=== PATIENT | female | born 1955 | race African-American/Black ===

== ENCOUNTER 2019-02-17 17:38 | Inpatient (IN) ==
[2019-02-17] MEDS ORDERED: ASPIRIN PO ONE (17:59)
[2019-02-17] MEDS ORDERED: ASPIRIN PR ONE (17:59)
[2019-02-17] MEDS ORDERED: LASIX IV ONE (18:03)
[2019-02-17 18:28] LABS: BASO# 0.05 X1000 (0.0-0.2); BASO% 0.5 % (0.0-0.8); EOS# 0.26 X1000 (0.0-0.7); EOS% 2.5 % (0.0-10.0); HEMATOCRIT 38.7 % (37.0-47.0); HEMOGLOBIN 12.9 g/dL (12.0-16.0); IMM GRAN# 0.02 X1000 (0.0-0.04); IMM GRAN% 0.2 % (0.0-0.5); LYMPH# 2.54 X1000 (1.2-3.4); LYMPH% 24.8 % (20.5-51.1); MCH 27.9 PG (27-31); MCHC 33.3 g/dL (33-37); MCV 83.8 FL (81-99); MONO# 0.75 X1000 (0.11-0.59); MONO% 7.3 % (1.7-9.3); MPV 8.6 FL (7.4-10.4); NEUT# 6.64 X1000 (1.4-6.5); NEUT% 64.7 % (42.2-75.2); PLT 356 X1000 (130-400); RBC 4.62 XMIL (4.2-5.4); RDW 14.6 % (11.5-14.5); WBC 10.26 X1000 (4.8-10.8)
[2019-02-17 18:34] LABS: INR 0.99; PROTIME 13.9 Seconds (11.0-16.0); PTT 26.4 Seconds (22.3-41.8)
[2019-02-17 18:44] LABS: AGAP 11; ALB/GLOB RATIO 1.3; ALBUMIN 3.8 g/dL (3.5-5.0); ALKALINE PHOSPHATASE 125 U/L (32-104); BUN 15 mg/dL (8-22); CALCIUM 9.6 mg/dL (8.8-10.2); CHLORIDE 105 mmol/L (98-107); COSMO 284; CREATININE 0.9 mg/dL (0.5-0.9); ESTIMATED GFR > 60; GLUCOSE 101 mg/dL (70-104); GOT 97 U/L (10-30); GPT 135 U/L (10-36); POTASSIUM 3.9 mmol/L (3.5-5.1); SODIUM 142 mmol/L (136-145); TCO2 26 mmol/L (25-35); TOTAL BILIRUBIN 0.52 mg/dL (0.20-1.00); TOTAL PROTEIN 6.7 g/dL (6.3-8.3)
--- NOTE | 2019-02-17 18:44 | Diag Imaging Result Doc PS360 ---
CHEST-2 VIEWS - 02/17/2019 INDICATION: sob COMPARISON: 01/11/2015 FINDINGS: There is significant cardiomegaly which was not present previously. There is pulmonary vascular congestion. There are mild interstitial infiltrates with curly B lines diffusely and bilaterally compatible with pulmonary edema. No significant pleural effusion. IMPRESSION: Cardiomegaly, pulmonary vascular congestion, pulmonary edema. Electronically signed by Lazarus Levin 02/17/2019 6:42 PM
[2019-02-17 18:56] LABS: CK PROFILE 658 U/L (24-173)
[2019-02-17 19:35] LABS: CK INDEX 1.5 (0.0-2.5); CK-MB 10.01 ng/mL (0.0-5.0)
--- NOTE | 2019-02-17 19:50 | PROVIDER DOCUMENTATION ---
This chart was entered by Madina Batista Scribe, acting as scribe for Lanette Romero MD. HPI-General Adult - General Chief Complaint: Shortness of Breath Stated Complaint: CP Time Seen by Provider: 02/17/19 17:53 Source: patient Allergies/Adverse Reactions: Patient Allergies Allergy/AdvReac Type Severity Reaction Status Date / Time No Known Allergies Allergy Verified 06/21/18 23:54 Home Medications: Home Medication List Medication Instructions Recorded Confirmed Last Taken Type Cyclobenzaprine [Flexeril] 1 tab PO DIRECTED 06/21/18 06/21/18 Unknown History Methylprednisolone [Medrol Dosepak] 1 dose PO DIRECTED 06/21/18 06/21/18 Unknown History - History of Present Illness -Gen Adult Nature of Presenting Problems: Pt is 63/F presenting to ED w/ SOB and Epigastric pain w/ some edema that has been present for the last 2 weeks. Pt went to [facility] today for echocardiogram and they instructed her to come to the ED. Pt has hx of HTN and asthma. Pt is also a current, everyday smoker Location of Pain/Injury: reports: abdomen (epigastric) Pain Radiation: reports: no radiation Quality of Pain: reports: aching Severity: reports: mild Onset/Duration: reports: other (2 weeks) Timing: reports: still present Context/Activities at Onset: reports: none Modifying Factors: improves with: nothing Associated Symptoms: reports: shortness of breath. denies: anxiety, cough, nausea, vomiting Similar Symptoms Previously?: Yes Recently seen or treated by another doctor?: Yes Review of Systems - Adult - REVIEW OF SYSTEMS - ADULT Constitutional: reports: no symptoms reported. denies: chills, fever Eyes: reports: no symptoms reported Ears, Nose, Mouth & Throat: reports: no symptoms reported Cardiovascular: reports: orthopnea. denies: chest pain Respiratory: reports: shortness of breath. denies: cough, wheezing Gastrointestinal: reports: abdominal pain. denies: nausea, vomiting Genitourinary: reports: no symptoms reported Musculoskeletal: reports: no symptoms reported Integumentary: reports: no symptoms reported Neurological: reports: no symptoms reported Psychiatric: reports: no symptoms reported Endocrine: reports: no symptoms reported Hematologic/Lymphatic: reports: no symptoms reported Allergic/Immunologic: reports: asthma All Other Systems: Reviewed and Negative Past History - Adult - PAST MEDICAL HISTORY-ADULT Review of Records: reports: Old Records Reviewed, Nursing Assessment Review, Medications Reviewed, Social history reviewed & non-contributory. Major Childhood Illnesses: reports: denies history Cardiovascular: reports: HTN Respiratory: reports: asthma Gastrointestinal: reports: denies history Genitourinary: reports: denies history Musculoskeletal: reports: denies history Neurological: reports: denies history Psychiatric: reports: denies history Endocrine/Immune: reports: denies history Other Conditions: reports: denies history - PRIOR SURGERIES/PROCEDURES Surgical/Procedure History: reports: other (cyst on right hip) - IMMUNIZATION STATUS Childhood Immunizations: See Nurse Assessment Flu Vaccine: See Nurse Assessment - FAMILY HISTORY Family History: reviewed, not pertinent - SOCIAL HISTORY Smoking: cigarettes Alcohol Use Frequency: never Living Situation: family Physical Exam-General - PHYSICAL EXAM-ADULT Initial Vital Signs Reviewed: Yes - CONSTITUTIONAL General Appearance: appears well, alert, no apparent distress - EYES Eyes: PERRL/EOMI, pink conjunctivae - HEAD, EARS, NOSE, MOUTH & THROAT HENMT: normocephalic/atraumatic, moist mucous membranes, normal ENT inspection - NECK Neck: non-tender, supple - RESPIRATORY Respiratory: lungs clear - CARDIOVASCULAR Cardiovascular: JVD, tachycardia (114), other (distant heart sounds) - GASTROINTESTINAL (ABDOMEN) Abdominal Exam: non tender, soft - MUSCULOSKELETAL Extremity: normal range of motion, non-tender, normal gait, other (pt has 2+ pitting edema bilaterally) - SKIN Integumentary: normal color, warm/dry - NEUROLOGIC Neurologic: grossly normal - PSYCHIATRIC Psych/Mental Status: normal mood/affect, normal thought content, normal thought process, oriented x 3 Progress - PLAN OF CARE/RESULTS Progress/Plan/Lab Results: Vital Signs - 8 hr 02/17/19 17:41 Temperature 97.8 F Pulse Rate 114 H Respiratory Rate 20 Blood Pressure 144/91 O2 Sat by Pulse Oximetry 96 Orders Category Date Time Status Cardiac Monitoring DIRECTED Care 02/17/19 17:59 Active Oxygen Therapy- ED Nursing DIRECTED Care 02/17/19 17:59 Active Saline Loc NOW Care 02/17/19 17:59 Active CHEST-2 VIEWS [RAD] Stat Exams 02/17/19 17:59 Ordered CBC WITH ELECTRONIC DIFF [HEME] Stat Lab 02/17/19 17:59 Uncollected CK PROFILE [SP CHEM] Stat Lab 02/17/19 17:59 Uncollected COMPREHENSIVE METABOLIC PANEL [CHEM] Stat Lab 02/17/19 17:59 Uncollected PRO B-NATRIURETIC PEPTIDE Stat Lab 02/17/19 17:59 Uncollected PROTIME WITH INR [COAG] Stat Lab 02/17/19 17:59 Uncollected PTT [COAG] Stat Lab 02/17/19 17:59 Uncollected TROPONIN T Stat Lab 02/17/19 17:59 Uncollected Aspirin Med 02/17/19 17:59 Discontinued 300 mg NH NOW ONE Aspirin Med 02/17/19 17:59 Discontinued 325 mg PO NOW ONE CP/SOB/Palp >45 yrs of Age Stat Oth 02/17/19 17:59 Ordered EKG [EKG] Stat Ther 02/17/19 17:59 Ordered Result Diagrams: 02/17/19 18:15 02/17/19 18:15 - REASSESSMENT Reassessment #1 Time Reassessed: 19:46 Status: improving (sob is improving. will continue with lasix while pt is in the hospital) - EKG 1 Time of EKG reading by physician:: 17:44 EKG Read and Signed by:: Nadine Rodriges EKG Interpretation (*Must complete 3 of following elements*): Abnormal (sinus tachycardia, Possible left atrial enlargement, Possible Anterior infarct, age undetermined. ST & T wave abnormality, consider lateral ischemia. Abnormal ECG.) Rate: 117 Rhythm: sinus tachycardia [place]: normal QRS: normal - CONSULTS/PCP/HOSPITALIST Notification #1 *Consult/PCP/Hospitalist*: dr. rodriguez Time Discussed: 19:49 Consult Disposition: Admit Departure - Departure Date of Disposition Decision: 02/17/19 Time of Disposition Decision: 19:47 DIAGNOSIS: New onset of congestive heart failure, Tobacco use disorder Disposition: ADMITTED INPATIENT 09 Certified Medical Emergency: Emergent Condition: Stable Referrals and Follow-Ups: None,PCP [Primary Care Provider] - - Critical Care Note This patient required my direct & personal management of CC.: No Attestation - Physician/ ARPAN Attestation Patient care was provided by Advanced Practice Provider:: No The physician spent face to face time with patient:: Yes Advanced Practice Provider documentation review:: Supervising physician onsite and consulted in the evaluation and care of this patient. The physician did have a face to face encounter with the patient. This chart was documented by the indicated scribe, (Madina Batista, Ragini) and accurately reflects the services I performed and decisions made by me, Lanette Romero MD, as attested by the provider's signature.
--- NOTE | 2019-02-17 21:58 | HISTORY AND PHYSICAL ---
PRIMARY CARE PHYSICIAN: None. REASON FOR ADMISSION: Three to 4 weeks history of progressive shortness of breath. HISTORY OF PRESENT ILLNESS: Ms. Corazon Stover is a 63-year-old woman with past medical history of hypertension, lumbar spinal stenosis. She comes in today via Dr. Quintana's office on account of some abnormal findings on her echocardiogram. The patient reports a 3 to 4 week history of shortness of breath with exertion, but over the last couple of weeks, he has been having PND and orthopnea. She admits to having a dry cough but no fever or chills. She also admits to a 3-day history of lower extremity swelling. Denies any antecedent chest pain. He states that her endurance has declined to the point that she barely go up a flight of stairs. About a few months ago, there was no limit to how many flight of steps she could go. She denies any arthralgia or rash. No polyuria or polydipsia. Also complains of epigastric pain and RUQ pain. Epigastric pain started a few days ago but no nausea or vomiting. No GI or complaints. No focal neurological complaints. REVIEW OF SYSTEMS: Twelve system review was done. Positive findings per HPI. Except patient feels she may have gained some weight subjectively. ALLERGIES: No known allergies. MEDICATIONS: None but had been on a blood pressure medication about a month ago but stopped taking it. SOCIAL HISTORY: Smokes about a pack a day but has not been smoking for the last 2 days because she feels miserable. No alcohol or illicit drug use. Lives alone. PAST MEDICAL HISTORY: See above. She was recently at Dr. Quintana's office a week or 2 ago, underwent PFTs and was then scheduled for the aforementioned echocardiogram. FAMILY HISTORY: Her sister of heart problem. Positive history of brain cancer and prostate cancer in first-degree relatives. LABORATORY WORK: White count 10,000, hemoglobin and hematocrit 12 and 38, platelets 356,000 with normal differential. BUN 15, creatinine 0.9, AST 97, ALT 135, alkaline phosphatase 125. CK 658 but index is normal. Troponin is negative. ProBNP 2786. Lactate 0.8. PT/PTT is normal. IMAGING: Chest film showed mild pulmonary vascular congestion and borderline cardiomegaly. The EKG is not available for my review. PHYSICAL EXAMINATION: GENERAL: Middle-aged, anxious, woman who is not in any acute distress at this point in time. VITAL SIGNS: Heart rate is 114, temperature is 97.8, respirations 20, and blood pressure is 136/91. She is 99% on room air. HEAD: Normocephalic, atraumatic. EYES: PERRLA, EOMI. Conjunctivae pale. ENT EXAM: Grossly normal except she has hyperpigmented tongue and hard and soft pharynx. She reports that this is something chronic and has even been biopsied in the past. No oropharyngeal exudates. NECK: Supple. There is noticeable JVD and positive hepatojugular reflux. No bruit. No thyromegaly. CHEST: Few bibasilar crepitations but good air entry in the bases. CARDIOVASCULAR: First and second heart sounds heard. No gallops, murmurs, rubs. Rhythm is regular. ABDOMEN: Slightly protuberant with tenderness confined to the epigastrium in the right upper quadrant. Bowel sounds are hypoactive. RECTAL EXAM: Deferred at this time. EXTREMITIES: Patient has 2+ pitting edema in the lower extremities. Distal pulse volume is full, symmetrical, regular. No clubbing or peripheral cyanosis. NEUROLOGICAL SYSTEM: No gross focal deficits. SKIN: Intact with no breakdown, lesions or erythema. MUSCULOSKELETAL: Exam is grossly normal. ASSESSMENT: 1. New onset congestive heart failure. 2. Hypertensive heart disease. 3. Abnormal liver function tests, probably secondary to passive congestion from congestive heart failure. 4. Tobacco use. PLAN: Patient will be admitted to the ICU. Continue with diuresis. I will add on Aldactone for potassium-sparing purposes pending patient's ejection fraction. If depressed we will probably start patient on Entresto. We will consult cardiology since this is a new onset CHF for further workup to rule out ischemic etiology. The patient may have a component of COPD since she smokes and DuoNebs are provided. Hepatitis profile will be ordered in view of patient's elevated transaminases, which could also be explained by passive congestion with CHF. Consult dietitian to educate patient regarding her diet from a cardiac standpoint. Follow electrolytes closely. cc: Tiara Contreras MD MTDJohana
[2019-02-17] MEDS ORDERED: TYLENOL PO PRN (22:51)
[2019-02-17] MEDS ORDERED: ZOFRAN IV PRN (22:51)
[2019-02-17] MEDS ORDERED: ALDACTONE PO ONE (23:45)
[2019-02-17] MEDS: LOVENOX SUBQ SCH (23:57)
[2019-02-18] MEDS: NICODERM PATCH TD SCH ×2 (00:37→11:01)
[2019-02-18] MEDS: DUONEB (A & A) INH SCH ×6 (00:43→23:39)
[2019-02-18 05:50] LABS: MCH 27.8 PG (27-31); MONO# 0.82 X1000 (0.11-0.59); MPV 8.7 FL (7.4-10.4); PLT 341 X1000 (130-400)
[2019-02-18 05:51] LABS: AGAP 11; CHLORIDE 102 mmol/L (98-107); GLUCOSE 104 mg/dL (70-104); POTASSIUM 2.9 mmol/L (3.5-5.1); SODIUM 141 mmol/L (136-145); TCO2 28 mmol/L (25-35)
[2019-02-18 05:52] LABS: ALB/GLOB RATIO 1.1; ALBUMIN 3.4 g/dL (3.5-5.0); ALKALINE PHOSPHATASE 92 U/L (32-104); BUN 12 mg/dL (8-22); CALCIUM 8.7 mg/dL (8.8-10.2); CHOLESTEROL 135 mg/dL (0-200); COSMO 281; CREATININE 0.9 mg/dL (0.5-0.9); ESTIMATED GFR > 60; GOT 75 U/L (10-30); GPT 112 U/L (10-36); HDL 34 mg/dL (45-65); LDL 79 mg/dL; MAGNESIUM 1.9 mg/dL (1.5-2.7); TOTAL BILIRUBIN 0.69 mg/dL (0.20-1.00); TOTAL PROTEIN 6.5 g/dL (6.3-8.3); TRIGLYCERIDES 112 mg/dL (35-135); VLDL 22 mg/dL
[2019-02-18 05:53] LABS: HEMOGLOBIN A1C 4.9 % (4.8-6.0)
[2019-02-18 06:06] LABS: BASO# 0.06 X1000 (0.0-0.2); BASO% 0.7 % (0.0-0.8); EOS# 0.29 X1000 (0.0-0.7); EOS% 3.4 % (0.0-10.0); HEMATOCRIT 39.5 % (37.0-47.0); HEMOGLOBIN 12.7 g/dL (12.0-16.0); LYMPH% 23.7 % (20.5-51.1); MCHC 32.2 g/dL (33-37); MCV 86.4 FL (81-99); MONO% 9.7 % (1.7-9.3); NEUT# 5.28 X1000 (1.4-6.5); NEUT% 62.5 % (42.2-75.2); RBC 4.57 XMIL (4.2-5.4); RDW 14.9 % (11.5-14.5); WBC 8.45 X1000 (4.8-10.8)
--- NOTE | 2019-02-18 06:06 | EKG Report ---
Test Performed on : 02/17/2019 5:44:01 PM Test Reason : sob Blood Pressure : / mmHG Vent. Rate : 117 BPM Atrial Rate : 117 BPM P-R Int : 116 ms QRS Dur : 074 ms QT Int : 322 ms P-R-T Axes : 068 -24 024 degrees QTc Int : 449 ms Sinus tachycardia. Possible Left atrial enlargement Possible Anterior infarct , age undetermined ST & T wave abnormality, consider lateral ischemia Abnormal ECG No previous ECGs available Unconfirmed Result
--- NOTE | 2019-02-18 08:38 | EKG Report ---
Test Performed on : 02/18/2019 08:18:19 AM Test Reason : CP Blood Pressure : / mmHG Vent. Rate : 099 BPM Atrial Rate : 099 BPM P-R Int : 132 ms QRS Dur : 088 ms QT Int : 390 ms P-R-T Axes : 070 -22 038 degrees QTc Int : 500 ms Normal sinus rhythm. Possible Left atrial enlargement Left ventricular hypertrophy T wave abnormality, consider lateral ischemia Prolonged QT Abnormal ECG When compared with ECG of 17-FEB-2019 17:44, (Unconfirmed) ST no longer depressed in Inferior leads Confirmed by Jeb Crawford MD ([id number]) on 02/20/2019 8:58:05 PM
[2019-02-18] MEDS: KLOR-CON PO SCH ×2 (09:09→20:29)
--- NOTE | 2019-02-18 09:10 | PROGRESS NOTE ---
DATE: 02/18/2019 SUBJECTIVE: This patient is feeling better compared with yesterday. She is still having some shortness of breath, lower extremity swelling. She does not have a history of heart failure, but she does have hypertension and she is a smoker. Cardiology Department has been consulted. We did an EKG that showed some T-wave inversions in V5 and V6 yesterday and also today. I will wait for recommendations. OBJECTIVE: Vital Signs: Temperature 98.2 degrees, pulse 101, respiratory rate 17, blood pressure 137/84, oxygen saturation 100% on room air. HEENT: Head normocephalic. No trauma. PERRLA. Neck: Supple. Mild JVD. Central trachea. Chest: Clear to auscultation. No wheezing. No rales. Abdomen: Soft, nontender, nondistended. No hepatosplenomegaly. Extremities: There is 2+ lower extremity edema. No clubbing. No cyanosis. Neurological: The patient is alert and oriented x3. No focal deficits. LABORATORY DATA: WBC 8.4, hemoglobin 12.7, hematocrit 39.5, platelets 241,000. Sodium 141, potassium 2.9, chloride 102, bicarbonate 28, BUN 12, creatinine 0.9, glucose 104, calcium 8.7. Magnesium 1.9. AST 75, ALT 212, alkaline phosphatase 92, albumin 3.4. TSH 12.5. ASSESSMENT AND PLAN: 1. Likely new-onset congestive heart failure. She has an elevated proBNP, some jugular venous distention, lower extremity edema. She is not complaining of chest pain, but she was a little bit short of breath today. We will continue with the same management. Pending Cardiology evaluation and recommendations. 2. Hypertension, stable. Continue with the same management. 3. Elevated liver function tests, likely secondary to hepatic congestion due to congestive heart failure. This is getting better. Continue with the same management. 4. Tobacco abuse. This patient has been highly advised against tobacco use. Will continue with daily cessation education. 5. Hypokalemia. I will replace it. cc: Sudeep Eli MD
[2019-02-18] MEDS: COREG PO SCH ×2 (11:09→20:29)
[2019-02-18] MEDS: LASIX IV SCH ×2 (11:10→20:29)
--- NOTE | 2019-02-18 12:39 | CONSULTATION ---
DATE OF CONSULTATION: 02/18/2019 IMPRESSION: 1. Biventricular congestive heart failure of recent onset. 2. Severe cardiomyopathy by echocardiography. Suspect possibly related to hypertension, but cannot exclude underlying atherosclerotic coronary disease. 3. Hypertension. Patient was treated for hypertension many years ago, but has not taken blood pressure medicines for some time and not seeing a physician. 4. Modest chronic cigarette use. RECOMMENDATIONS: 1. Diurese with IV Lasix as you are doing. 2. Add low-dose carvedilol. 3. Add low-dose ARB valsartan. 4. Ultimately, may consider Entresto. 5. Once patient is improved from a standpoint of congestive heart failure, we will consider definitive evaluation of her cardiomyopathy with cardiac catheterization/coronary angiography. This was discussed with the patient. HISTORY: This 63-year-old -[place] female with history of previous hypertension in the past, and modest chronic cigarette use was admitted with progressive dyspnea and lower extremity swelling. She has been found to have severe cardiomyopathy prompting cardiology consult. She relates that she was feeling well until about a month ago. She started having exertional shortness of breath and fatigue. She might experience some burning indigestion like chest discomfort which was nonexertional, and seemed to respond to the Zantac. Over the last 2 weeks, she started to have orthopnea and her shortness of breath with exertion progressively increased. Over the last few days, she has also had reemergence of lower extremity edema. She did see a physician at urgent care about 3 weeks ago and was started on antihypertensive medications at that time, and referred for Pulmonary consult. PAST MEDICAL HISTORY: 1. Hypertension. 2. Lumbar spinal stenosis. PAST SURGICAL HISTORY: None. ALLERGIES: She has no known drug allergies. MEDICATIONS PRIOR TO ADMISSION: As listed. 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 She smokes perhaps 5 cigarettes a day. She does not use alcohol. FAMILY HISTORY: Positive for unspecified heart issues. Details not known. REVIEW OF SYSTEMS: Pulmonary: Noncontributory beyond history of present illness. Gastrointestinal: Noncontributory beyond history of present illness. Constitutional: Noncontributory beyond history of present illness. Remainder of review of systems negative/noncontributory beyond history of present illness with 14 total systems reviewed. PHYSICAL EXAMINATION: General: This is a pleasant, middle-aged -[place]ian female in no distress on room air. Vital signs: Blood pressure 137/84, heart rate 101 with ECG monitor showing sinus rhythm. HEENT: Extraocular movements intact. Mucous membranes moist. Neck: Supple. Jugular venous distention is evident consistent with significantly elevated central venous pressure. Chest: Clear to auscultation. Cardiac: Exam reveals a regular rate and rhythm without appreciable murmur or gallop. Abdomen: Soft. Bowel sounds are normal. Extremities: Demonstrate moderate low pretibial edema. Neurologic: Reveals her to be alert and fully oriented. Speech is fluent. Moves all 4 extremities equally well. Skin: Warm and dry. Psychiatric: Reveals mood to be appropriate. DIAGNOSTIC: 12 lead EKG demonstrates sinus rhythm, left atrial abnormality, left hypertrophy with repolarization abnormality. LABORATORY DATA: Sodium 141, potassium 2.9, chloride 102, carbon dioxide 28, BUN 12, creatinine 0.9, glucose 104. Magnesium 1.9. TSH 12.55. Troponin T less than 0.01. Pro B-natriuretic peptide level 3786. White blood cell count 8.45, hematocrit 39.5, hemoglobin 12.7 and platelet count 341,000. cc: Josue Garcia MD
[2019-02-18 12:41] LABS: CK INDEX 1.5 (0.0-2.5); CK-MB 7.04 ng/mL (0.0-5.0)
[2019-02-18] MEDS: DIOVAN PO SCH (14:20)
--- NOTE | 2019-02-18 15:43 | ECHO REPORT ---
ORDER DATE: 02/17/2019 INDICATIONS: CHF. FINDINGS: 1. The right atrium appears normal in size at 3.9 cm. 2. Mild tricuspid regurgitation. RV systolic pressure of 62 suggesting pulmonary hypertension. 3. Normal RV size and systolic function. 4. Mild pulmonic insufficiency. 5. Severe left atrial enlargement with a volume index of 49. 6. No mitral valve prolapse. Moderate mitral regurgitation. No mitral stenosis. 7. Dilated left ventricle with an end-diastolic dimension of 5.8. Normal wall thicknesses with a posterior and interventricular septal thickness of 1.0 and 1.1 cm respectively. Severe LV systolic dysfunction with an estimated EF of 15%. I do not see any clear evidence of organized left ventricular apical thrombus on standard views, but with Optison injection the apex is not very well visualized. 8. Aortic valve opens well. It is trileaflet. No evidence of stenosis or insufficiency. 9. Aorta appears normal in visualized segments. 10. No pericardial effusion seen. cc: MD Tiara Davila MD
[2019-02-18] MEDS: LOVENOX SUBQ SCH ×2 (20:29→22:24)
[2019-02-19] MEDS: DUONEB (A & A) INH SCH ×5 (03:28→23:00)
[2019-02-19 06:00] LABS: AGAP 9; BUN 19 mg/dL (8-22); CALCIUM 9.1 mg/dL (8.8-10.2); CHLORIDE 104 mmol/L (98-107); COSMO 286; ESTIMATED GFR > 60; GLUCOSE 103 mg/dL (70-104); POTASSIUM 3.5 mmol/L (3.5-5.1); SODIUM 142 mmol/L (136-145); TCO2 29 mmol/L (25-35)
--- NOTE | 2019-02-19 07:25 | EKG Report ---
Test Performed on : 02/19/2019 06:31:08 AM Test Reason : dyspnea Blood Pressure : / mmHG Vent. Rate : 089 BPM Atrial Rate : 089 BPM P-R Int : 128 ms QRS Dur : 088 ms QT Int : 394 ms P-R-T Axes : 060 -10 252 degrees QTc Int : 479 ms Normal sinus rhythm. Moderate voltage criteria for LVH, may be normal variant T wave abnormality, consider inferolateral ischemia Prolonged QT Abnormal ECG When compared with ECG of 18-FEB-2019 08:18, (Unconfirmed) Inverted T waves have replaced nonspecific T wave abnormality in Inferior leads Confirmed by Jeb Crawford MD ([id number]) on 02/20/2019 9:09:56 PM
--- NOTE | 2019-02-19 08:29 | PROGRESS NOTE ---
DATE: 02/19/2019 SUBJECTIVE: The patient is feeling better. She is not having too much shortness of breath today. She has some lower extremity swelling, but it is getting better as well. Echocardiogram showed pulmonary hypertension, and a severe decrease of the ejection fraction of 15%. Cardiology Department on board. I have decreased the dose of Lasix from twice a day to once a day. I will wait for more recommendations. OBJECTIVE: Vital Signs: Temperature 97.3 degrees, pulse 93, respiratory rate 14, blood pressure 125/80, and oxygen saturation 97% on room air. HEENT: Head normocephalic. No trauma. PERRLA. Neck: Supple. No JVD. No masses. Central trachea. Chest: Clear to auscultation. No wheezing. Mild rales at the bases. Abdomen: Soft, nontender, and nondistended. No hepatosplenomegaly. Extremities: 1 to 2+ lower extremity edema. No clubbing. No cyanosis. Neurological: The patient is alert. She is oriented x3. No focal deficits. LABORATORY: Sodium 142, potassium 3.5, chloride 104, bicarbonate 29, BUN 19, creatinine 1, glucose 103 and calcium 2. ASSESSMENT AND PLAN: 1. New onset CHF, severe, ejection fraction around 15 percent with pulmonary hypertension so likely this is a combined/biventricular CHF of recent onset. Cardiology Department on board. She has been placed on beta blockers, LAURA inhibitors, statin, diuretics, and Aldactone. I have decreased the dose of the Lasix from twice a day to once a day. She has been responding well. 2. Hypertension, stable. Continue with same management. 3. Elevated LFTs likely secondary to hepatic congestion due to congestive heart failure. I will get a new CMP tomorrow. 4. Tobacco abuse. This patient has been highly advised against tobacco use. I will continue with daily cessation education. 5. Hypokalemia resolved. cc: Sudeep Eli MD
[2019-02-19] MEDS ORDERED: LASIX IV SCH (09:00)
[2019-02-19] MEDS: DIOVAN PO SCH (09:46)
[2019-02-19] MEDS: ALDACTONE PO SCH (09:46)
[2019-02-19] MEDS: COREG PO SCH ×2 (09:46→20:48)
[2019-02-19 11:58] LABS: HEPATITIS PROFILE ACUTE SEE COMMENTS
--- NOTE | 2019-02-19 18:06 | CARDIOLOGY PROGRESS NOTE ---
DATE: 02/19/2019 SUBJECTIVE: Patient reports feeling much better. She denies shortness of breath on room air. Lower extremity swelling has also improved. There has been no chest pain. OBJECTIVE: Blood pressure 114/76, heart rate 81, oxygen saturation 96% on room air. There is no significant jugular venous distention.Chest: Clear to auscultation. Cardiac: Regular rate and rhythm without appreciable murmur or gallop. Extremities: Trace ankle edema bilaterally. LABORATORY DATA: Includes sodium 142, potassium 3.5, chloride 104, carbon dioxide 29, BUN 19, creatinine 1.0, glucose 103. Initial troponin less than 0.01, followup troponin less than 0.01, and 3rd troponin less than 0.01. IMPRESSION: 1. Acute systolic heart failure, biventricular. Now improved with diuresis. 2. Severe cardiomyopathy by echocardiography. Suspect possibly related to hypertension, but cannot exclude underlying coronary atherosclerosis. 3. Hypertensive cardiovascular disease. 4. Modest cigarette use. RECOMMENDATIONS: 1. Transition to oral Lasix. 2. Continue carvedilol and valsartan. 3. Reasonable for patient to be discharged to home tomorrow morning to have followup next week with me in clinic. At that point, further evaluation with coronary angiography will be considered. cc: Josue Garcia MD
[2019-02-19] MEDS: LOVENOX SUBQ SCH ×2 (21:28→21:59)
[2019-02-20] MEDS: DUONEB (A & A) INH SCH ×2 (03:32→09:38)
[2019-02-20 06:02] LABS: BASO# 0.07 X1000 (0.0-0.2); BASO% 0.8 % (0.0-0.8); EOS# 0.33 X1000 (0.0-0.7); EOS% 3.9 % (0.0-10.0); HEMATOCRIT 40.9 % (37.0-47.0); HEMOGLOBIN 13.6 g/dL (12.0-16.0); IMM GRAN# 0.05 X1000 (0.0-0.04); IMM GRAN% 0.6 % (0.0-0.5); LYMPH# 2.67 X1000 (1.2-3.4); LYMPH% 31.8 % (20.5-51.1); MCH 27.8 PG (27-31); MCHC 33.3 g/dL (33-37); MCV 83.5 FL (81-99); MONO# 0.83 X1000 (0.11-0.59); MONO% 9.9 % (1.7-9.3); MPV 8.9 FL (7.4-10.4); NEUT# 4.45 X1000 (1.4-6.5); PLT 347 X1000 (130-400); RDW 14.4 % (11.5-14.5)
[2019-02-20 06:51] LABS: AGAP 11; BUN 29 mg/dL (8-22); CALCIUM 9.2 mg/dL (8.8-10.2); CHLORIDE 101 mmol/L (98-107); COSMO 284; ESTIMATED GFR > 60; GLUCOSE 102 mg/dL (70-104); POTASSIUM 3.8 mmol/L (3.5-5.1); SODIUM 139 mmol/L (136-145); TCO2 27 mmol/L (25-35)
[2019-02-20 06:52] LABS: ALB/GLOB RATIO 1.2; ALBUMIN 3.6 g/dL (3.5-5.0); ALKALINE PHOSPHATASE 98 U/L (32-104); GOT 41 U/L (10-30); GPT 71 U/L (10-36); PHOSPHORUS 3.8 mg/dL (2.7-4.5); TOTAL BILIRUBIN 0.55 mg/dL (0.20-1.00); TOTAL PROTEIN 6.6 g/dL (6.3-8.3)
[2019-02-20] MEDS: COREG PO SCH (08:34)
[2019-02-20] MEDS: ALDACTONE PO SCH (08:34)
[2019-02-20] MEDS: DIOVAN PO SCH (08:34)
[2019-02-20] MEDS ORDERED: LASIX PO SCH (09:00)
[2019-02-20 11:31] VITALS: BP 94/59
--- NOTE | 2019-02-20 15:52 | DISCHARGE SUMMARY ---
ADMISSION DATE: 02/17/2019 DISCHARGE DATE: 02/20/2019 DISPOSITION: Home. FOLLOWUP: Followup will be with Dr. Garcia. CONSULTATION DURING THIS ADMISSION: Cardiology was consulted. The patient was seen by Dr. Garcia. INVASIVE PROCEDURES DONE DURING THIS ADMISSION: None. IMAGING STUDIES OF SIGNIFICANCE: Chest x-ray did show cardiomegaly, pulmonary vascular congestion, and pulmonary edema. Echocardiogram did show ejection fraction of 15%. ADMISSION DIAGNOSES: 1. New onset congestive heart failure. 2. Hypertensive heart disease. 3. Abnormal liver function. 4. Tobacco use. DIAGNOSES AT THE TIME OF DISCHARGE: 1. New onset congestive heart failure with evidence of fluid overload. 2. Severe global dilated cardiomyopathy. 3. Biventricular failure. 4. Pulmonary artery hypertension. 5. Congestive hepatopathy. 6. Suspected chronic obstructive pulmonary disease. 7. Tobacco abuse. The patient has been counseled. 8. Hypothyroidism with elevated TSH consistent with inadequate supplementation. 9. Longstanding essential hypertension. DISCHARGE MEDICATIONS: 1. Aldactone 25 mg p.o. daily. 2. Carvedilol 3.125 p.o. b.i.d. 3. Diovan 40 mg p.o. daily. 4. Lasix 40 mg daily. 5. Levothyroxine 75 mcg p.o. daily. 6. Montelukast 10 mg p.o. at bedtime. 7. ProAir inhaler 2 puffs q. 6 p.r.n. PRESENTING COMPLAINT: Four-week history of progressive shortness of breath. HISTORY OF PRESENTING COMPLAINT: Miss Stover is a 63-year-old female with history of hypertension and spinal stenosis who went to visit Dr. Quintana's office because of progressive shortness of breath, was found to have an abnormal echocardiogram, and was referred to the emergency department for further medical evaluation. HOSPITAL COURSE: Miss Stover was admitted to [facility], was started on IV diuretic therapy, and multiple axillary testing was done which revealed among them an echocardiogram that showed that the ejection fraction was 15%. Cardiology was consulted. The patient was seen by Dr. Garcia. During the hospital course Miss Stover became clinically stable. Shortness of breath improved as well as all the congestive symptoms. Liver enzymes trended down as she became euvolemic. Cardiology recommended from yesterday that the patient could be discharged home today and have her followup with them on outpatient basis to continue evaluation for possible underlying coronary artery disease. Miss Stover is clinically stable for discharge today. CURRENT PHYSICAL EXAMINATION: Current vitals: Blood pressure 94/59, pulse of 83, respiration is 18, temperature 98.6 degrees, the patient is saturating 99% on room air. Current physical exam is completely unremarkable. No pedal edema. No JVD. No signs of congestion. We think she is currently euvolemic. She will be discharged on the medications dictated above, and she will follow up with Dr. Rolon within a week for possible outpatient angiography. The patient has also been advised on multiple occasions about tobacco cessation. Time spent for discharge is 35 minutes. cc: MD Josue Simmons MD
--- NOTE | 2019-02-22 06:49 | Extremity Venous Study ---
PROCEDURE NAME: Venous U/S Bilateral Legs - 02/18/2019 REQUESTING PROVIDER: Neena. CORE BLOWER OPERATOR: Jay. INDICATIONS: 1. Dyspnea. 2. Bilateral lower extremity leg swelling, left greater than right. EQUIPMENT: [employer] Vivid E9 ultrasound system a 9LD transducer. FINDINGS: Images of bilateral lower extremity venous systems were obtained in both sagittal and transverse planes. Doppler was used to evaluate veins for spontaneity, phasicity, respiratory excursion, and digital augmentation. RESULTS: Some pulsatility noted to the venous waveforms which may represent central cardiac issue, but no obvious superficial or deep venous thrombosis noted. INTERPRETATION: Pulsatility noted to bilateral venous system which may represent a central cardiac issue. I would recommend handling that clinically, but no obvious superficial or deep venous thrombosis noted. cc: MD Toshia Lay, NORMA
== END 2019-02-20 15:30 | disposition home or self-care (01) | DRG 291 ==
LOC: ED 17:38 → SUATTDRO 17:39 → 3S 17:39
PROVIDERS: ATTEND Internal Medicine
CPT/HCPCS: 71020; 71046; 80048; 80053; 80061; 80074; 82550; 82553; 83036; 83605; 83735; 83880; 84100; 84443; 84484; 85025; 85379; 85610; 85730; 93005; 93010; 93306; 93970; 94640; 94761; 96372; 96374; 99285; A9270; C8929; J1650; J1940; Q9957